=== PATIENT | male | born 1965 | race Caucasian/White ===

== ENCOUNTER 2025-04-28 20:27 | Inpatient (IN) | payer MEDICAID, OTHER ==
[~2025-04-28] VITALS: Ht 177.8 cm; Wt 109.3 kg
[~2025-04-28 20:27] MED LIST: ALBU18HF12 IH; ASPI81TA87 PO; ATOR10TA PO; FOLI0.4T3 PO; FURO40TA6 PO; IPRA4AER IH; METO25 PO; MULT-14 PO; PRED-554 PO; SPIR-37 PO; THIA100T80 PO
[2025-04-28] MEDS ORDERED: MORPHINE SULFATE 2 MG/ML SYRINGE IVP PRN (21:30)
[2025-04-28] MEDS ORDERED: BISACODYL 10 MG RECTAL RECTAL SUPPOSITORY PR PRN (21:30)
[2025-04-28] MEDS ORDERED: ALBUTEROL SULFATE 2.5 MG/0.5 ML NEB SOLUTION NEB PRN (21:30)
[2025-04-28] MEDS ORDERED: ACETAMINOPHEN 325 MG TABLET PO PRN (21:30)
[2025-04-28] MEDS ORDERED: OxyCODONE HCL/ACETAMINOPHEN 5-325 MG TABLET PO PRN (21:30)
[2025-04-28] MEDS ORDERED: MAGNESIUM HYDROXIDE SUSPENSION 30 ML UDCUP PO PRN (21:30)
[2025-04-28] MEDS ORDERED: ZOLPIDEM TARTRATE 5 MG TABLET PO PRN (21:30)
[2025-04-28] MEDS ORDERED: ONDANSETRON HCL 4 MG/2 ML VIAL IVP PRN (21:30)
[2025-04-28] MEDS ORDERED: IPRATROPIUM BROMIDE 0.5 MG/2.5 ML NEB SOLUTION NEB PRN (21:30)
[2025-04-28 21:39] LABS: COVID AG,FIA SOURCE NASAL SWAB
[2025-04-28 21:44] LABS: PLATELET COUNT (AUTO) 205 K/uL (150-450); RED BLOOD CELL COUNT(AUTO) 4.40 MIL/uL (4.50-5.90); RED CELL DISTRIBUTION WIDTH 18.0 % (11.5-14.5); WHITE BLOOD COUNT (AUTO) 7.7 K/uL (4.5-11.0)
[2025-04-28 21:45] VITALS: PULSE 113; RESP 28; O2SAT 99
[2025-04-28 21:51] LABS: CALCIUM, TOTAL 9.8 mg/dL (8.8-10.5); CREATININE 1.32 mg/dL (0.60-1.30); GLOMERULAR FILTR. RATE CALC 55 mL/min (>60); GLUCOSE,RANDOM 124 mg/dL (70-110); SODIUM SERUM 140 mmol/L (136-145); UREA NITROGEN, BLOOD 17 mg/dL (7-18)
[2025-04-28] MEDS: FUROSEMIDE 20 MG/2 ML VIAL IVP ONE (21:51)
[2025-04-28 21:59] LABS: ASPARTATE AMINOTRANSFERASE 40.0 U/L (15-37); CREATINE KINASE, TOTAL ONLY 118.0 U/L (39-308); TOTAL PROTEIN, SERUM 7.1 g/dL (6.4-8.2); TROPONIN I-HIGH SENSITIVITY 54 ng/L (<76)
[2025-04-28 22:00] VITALS: PULSE 113; RESP 28; O2SAT 99
[2025-04-28 22:08] LABS: SARS-COV2 (COVID) ANTIGEN,FIA Negative (Negative)
[2025-04-28 22:09] LABS: INFLUENZA TYPE A NEGATIVE FOR TYPE A (NEGATIVE); INFLUENZA TYPE B NEGATIVE FOR TYPE B (NEGATIVE)
[2025-04-29] VITALS (14 sets, daily range): BP systolic 113–158; BP diastolic 80–114; PULSE 73–114; RESP 20–26; TEMP 97.5–97.9; O2SAT 94–100
[2025-04-29] MEDS: HEPARIN SODIUM,PORCINE 5,000 UNITS/ML VIAL SQ SCH (00:35)
[2025-04-29 01:21] LABS: APPEARANCE,URINE CLEAR (CLEAR); GLUCOSE, URINE (UA) NEGATIVE (NEGATIVE); LEUKOCYTE ESTERASE ,URINE NEGATIVE (NEGATIVE); NITRATE,URINE NEGATIVE (NEGATIVE); OCCULT BLOOD,URINE NEGATIVE (NEGATIVE); SPECIFIC GRAVITIY, URINE 1.010 (1.003-1.030)
[2025-04-29 01:22] LABS: PH,URINE DRUG SCREEN 6.0 (5.0-8.0)
[2025-04-29 01:28] LABS: ALCOHOL, URINE DRUG SCREEN NEGATIVE (NEGATIVE); AMPHET/METH SCREEN,URINE POSITIVE (NEGATIVE); BARBITURATE SCREEN, URINE NEGATIVE (NEGATIVE); CANNABINOID SCREEN,URINE POSITIVE (NEGATIVE); COCAINE SCREEN,URINE NEGATIVE (NEGATIVE); METHADONE SCREEN, URINE NEGATIVE (NEGATIVE)
[2025-04-29 06:27] LABS: PLATELET COUNT (AUTO) 216 K/uL (150-450); RED BLOOD CELL COUNT(AUTO) 4.67 MIL/uL (4.50-5.90); RED CELL DISTRIBUTION WIDTH 18.1 % (11.5-14.5); WHITE BLOOD COUNT (AUTO) 11.1 K/uL (4.5-11.0)
[2025-04-29 06:34] LABS: CALCIUM, TOTAL 9.8 mg/dL (8.8-10.5); CREATININE 1.46 mg/dL (0.60-1.30); GLOMERULAR FILTR. RATE CALC 49.0 mL/min (>60); GLUCOSE,RANDOM 133.0 mg/dL (70-110); SODIUM SERUM 138.0 mmol/L (136-145); UREA NITROGEN, BLOOD 18.0 mg/dL (7-18)
[2025-04-29 07:04] LABS: RBC MORPHOLOGY COMMENT ABNORMAL RBC MORPH
[2025-04-29] MEDS: ASPIRIN 81 MG DR TABLET PO SCH (08:22)
[2025-04-29] MEDS: FUROSEMIDE 40 MG/4 ML VIAL IVP SCH (08:22)
[2025-04-29] MEDS: METOPROLOL TARTRATE 25 MG TABLET PO SCH (08:22)
[2025-04-29] MEDS: SPIRONOLACTONE 25 MG TABLET PO SCH (08:22)
[2025-04-29] MEDS: THIAMINE 100 MG TABLET PO SCH (08:23)
[2025-04-29] MEDS: FAMOTIDINE 20 MG TABLET PO SCH (08:23)
[2025-04-29] MEDS: MULTIVITAMINS, THERAPEUTIC TABLET PO SCH (08:23)
[2025-04-29] MEDS ORDERED: FUROSEMIDE 40 MG/4 ML VIAL IVP SCH (09:00)
[2025-04-29] MEDS ORDERED: ALBUTEROL SULFATE 2.5 MG/0.5 ML NEB SOLUTION NEB PRN (11:30)
[2025-04-29] MEDS ORDERED: IPRATROPIUM BROMIDE 0.5 MG/2.5 ML NEB SOLUTION NEB PRN (11:30)
[2025-04-29] MEDS: FOLIC ACID 0.4 MG TABLET PO SCH (12:32)
[2025-04-29] MEDS: ALBUTEROL SULFATE 2.5 MG/0.5 ML NEB SOLUTION NEB SCH (14:47)
[2025-04-29] MEDS: IPRATROPIUM BROMIDE 0.5 MG/2.5 ML NEB SOLUTION NEB SCH (14:47)
[2025-04-29] MEDS: ATORVASTATIN CALCIUM 10 MG TABLET PO SCH (21:07)
[2025-04-30] VITALS (14 sets, daily range): BP systolic 97–139; BP diastolic 75–99; PULSE 67–98; RESP 16–22; TEMP 97.7–98.2; O2SAT 95–100
[2025-04-30] MEDS ORDERED: FUROSEMIDE 40 MG TABLET PO SCH (21:00)
[2025-05-01 03:11] VITALS: BP 109/75; PULSE 86; RESP 19; TEMP 97.7; O2SAT 96
[2025-05-01 07:00] VITALS: PULSE 86; PULSE 88; RESP 16; RESP 18; O2SAT 94; O2SAT 98
[2025-05-01] MEDS ORDERED: METO25 PO (07:36)
[2025-05-01] MEDS ORDERED: ASPI81TA87 PO (07:36)
[2025-05-01] MEDS ORDERED: PRED-554 PO (07:36)
[2025-05-01] MEDS ORDERED: FOLI0.4T3 PO (07:36)
[2025-05-01] MEDS ORDERED: ATOR10TA PO (07:36)
[2025-05-01] MEDS ORDERED: FURO40TA6 PO (07:36)
[2025-05-01] MEDS ORDERED: ALBU18HF12 IH (07:36)
[2025-05-01] MEDS ORDERED: SPIR-37 PO (07:36)
[2025-05-01] MEDS ORDERED: THIA100T80 PO (07:36)
[2025-05-01] MEDS ORDERED: MULT-14 PO (07:36)
[2025-05-01] MEDS ORDERED: IPRA4AER IH (07:36)
[2025-05-01 08:39] VITALS: BP 115/88; PULSE 82; RESP 18; TEMP 97.9; O2SAT 100
[2025-05-01 10:00] VITALS: PULSE 84; RESP 16; O2SAT 99
== END 2025-05-01 10:40 | disposition home or self-care (01) | DRG 194 ==
LOC: EMS 20:27 → EDH 21:21 → 5S 04-29 00:07
PROVIDERS: ADMIT Hospitalist; ATTEND Hospitalist
PROC: 5A09357 Assistance with Respiratory Ventilation, Less than 24 Consecutive Hours, Continuous Positive Airway Pressure (ICD-10-PCS; principal; 2025-04-28)
PROC: 5A09357 Assistance with Respiratory Ventilation, Less than 24 Consecutive Hours, Continuous Positive Airway Pressure (ICD-10-PCS; 2025-04-29)
PROC: 5A09357 Assistance with Respiratory Ventilation, Less than 24 Consecutive Hours, Continuous Positive Airway Pressure (ICD-10-PCS; 2025-04-30)
DX: I11.0 Hypertensive heart disease with heart failure (principal); J96.00 Acute respiratory failure, unspecified whether with hypoxia or hypercapnia; I50.23 Acute on chronic systolic (congestive) heart failure; F17.210 Nicotine dependence, cigarettes, uncomplicated; J44.9 Chronic obstructive pulmonary disease, unspecified; F19.10 Other psychoactive substance abuse, uncomplicated; Z20.822 Contact with and (suspected) exposure to COVID-19; Z79.899 Other long term (current) drug therapy
CPT/HCPCS: 71045; 80048; 80076; 80307; 81003; 82550; 83880; 84484; 85025; 85610; 85730; 87081; 87804; 93005; 94640; 94660; 94760; 96374; 99285; G0378; J1644; J1938; J2919; 36415-L1; 36415-TC; J7613

== ENCOUNTER 2025-07-05 22:25 | Emergency (ER) | payer OTHER ==
[~2025-07-05] VITALS: Ht 177.8 cm; Wt 97.7 kg
[2025-07-05 22:37] VITALS: TEMP 100.2
[2025-07-05 22:57] VITALS: PULSE 109; RESP 36; O2SAT 94
[2025-07-05] MEDS: ALBUTEROL SULFATE 2.5 MG/0.5 ML NEB SOLUTION NEB ONE (22:57)
[2025-07-05] MEDS: IPRATROPIUM BROMIDE 0.5 MG/2.5 ML NEB SOLUTION NEB ONE (22:58)
[2025-07-05 23:12] VITALS: PULSE 111; RESP 32; O2SAT 97
[2025-07-05 23:21] LABS: COVID AG,FIA SOURCE NASAL SWAB
[2025-07-05 23:22] LABS: PLATELET COUNT (AUTO) 169 K/uL (150-450); RED BLOOD CELL COUNT(AUTO) 5.02 MIL/uL (4.50-5.90); RED CELL DISTRIBUTION WIDTH 17.4 % (11.5-14.5); WHITE BLOOD COUNT (AUTO) 9.0 K/uL (4.5-11.0)
[2025-07-05 23:25] LABS: CALCIUM, TOTAL 8.7 mg/dL (8.8-10.5); CREATININE 1.58 mg/dL (0.60-1.30); GLOMERULAR FILTR. RATE CALC 45 mL/min (>60); GLUCOSE,RANDOM 129 mg/dL (70-110); INFLUENZA TYPE A NEGATIVE FOR TYPE A (NEGATIVE); INFLUENZA TYPE B NEGATIVE FOR TYPE B (NEGATIVE); SARS-COV2 (COVID) ANTIGEN,FIA Negative (Negative); SODIUM SERUM 133 mmol/L (136-145); UREA NITROGEN, BLOOD 15 mg/dL (7-18)
[2025-07-05 23:27] LABS: CREATINE KINASE, TOTAL ONLY 145 U/L (39-308)
[2025-07-05 23:35] LABS: LACTIC ACID 3.1 mmol/L (0.4-2.0); TROPONIN I-HIGH SENSITIVITY 84 ng/L (<76)
[2025-07-05] MEDS ORDERED: 0.9% SODIUM CHLORIDE 10 ML SYRINGE IVP PRN (23:45)
[2025-07-06] MEDS: SODIUM CHLORIDE 0.9% 1,950 ML IV ONE (00:13)
[2025-07-06] MEDS: PIPERACILLIN/TAZO 3.375 GM/D5W 50 ML IV ONE (00:20)
[2025-07-06 00:28] VITALS: PULSE 107; RESP 36; O2SAT 100
[2025-07-06] MEDS: ALBUTEROL SULFATE 2.5 MG/0.5 ML 5 ML NEB SOLUTION NEB ONE (00:28)
[2025-07-06] MEDS: IPRATROPIUM BROMIDE 0.5 MG/2.5 ML NEB SOLUTION NEB ONE (00:28)
[2025-07-06] MEDS: FUROSEMIDE 20 MG/2 ML VIAL IVP ONE (01:10)
[2025-07-06] MEDS: VANCOMYCIN 1GM/WATER(PEG/NADA) 200 ML IV ONE (01:20)
[2025-07-06 01:28] VITALS: PULSE 111; RESP 30; O2SAT 100
[2025-07-06 02:06] LABS: TROPONIN I-HIGH SENSITIVITY 92 ng/L (<76)
[2025-07-06 05:00] VITALS: BP 120/81; PULSE 99; RESP 20; O2SAT 96
[2025-07-06 05:49] LABS: PH,URINE DRUG SCREEN 5.0 (5.0-8.0)
[2025-07-06 05:50] LABS: APPEARANCE,URINE CLEAR (CLEAR); GLUCOSE, URINE (UA) NEGATIVE (NEGATIVE); LEUKOCYTE ESTERASE ,URINE NEGATIVE (NEGATIVE); NITRATE,URINE NEGATIVE (NEGATIVE); OCCULT BLOOD,URINE NEGATIVE (NEGATIVE); SPECIFIC GRAVITIY, URINE 1.006 (1.003-1.030)
[2025-07-06 05:56] LABS: AMPHET/METH SCREEN,URINE POSITIVE (NEGATIVE); BARBITURATE SCREEN, URINE NEGATIVE (NEGATIVE); CANNABINOID SCREEN,URINE NEGATIVE (NEGATIVE); COCAINE SCREEN,URINE NEGATIVE (NEGATIVE); METHADONE SCREEN, URINE NEGATIVE (NEGATIVE)
[2025-07-06 05:58] LABS: ALCOHOL, URINE DRUG SCREEN NEGATIVE (NEGATIVE)
== END 2025-07-06 05:22 | disposition admitted as inpatient to this hospital (09) ==
LOC: EMS 22:43 → EDH 07-06 03:51 → UNDOADMIN 07-06 03:51 → EDH 07-06 05:22 → UNDODISIN 07-07 00:41
DX: I50.9 Heart failure, unspecified (principal); A41.9 Sepsis, unspecified organism; L03.116 Cellulitis of left lower limb; L03.115 Cellulitis of right lower limb; J44.9 Chronic obstructive pulmonary disease, unspecified; I10 Essential (primary) hypertension; F17.210 Nicotine dependence, cigarettes, uncomplicated; F12.90 Cannabis use, unspecified, uncomplicated; Z79.899 Other long term (current) drug therapy; Z20.822 Contact with and (suspected) exposure to COVID-19
CPT/HCPCS: 99291; 71045; 87426; 80048; 82550; 83605 ×2; 83880; 84484 ×2; 85025; 85379; 85610; 87040; 87804; 36415 ×2; 93005; 84145; 96365; 96375; 96367; 96366; 81003; 94644; 80307 ×9; J2919; J3490; J1938; J2543; J7030; 94640; 94760; G0378; J7613